=== PATIENT | female | born 1975 | race Caucasian/White ===

== ENCOUNTER 2018-07-17 17:51 | Emergency (ER) | payer OTHER ==
--- NOTE | 2018-07-17 18:57 | UC ---
Laceration HPI - History Of Current Complaint Stated Complaint: THUMB LAC Time Seen by Provider: 07/17/18 18:57 Hx Last Menstrual Period: IRREGULAR - Allergies/Home Medications Allergies/Adverse Reactions: Allergies Allergy/AdvReac Type Severity Reaction Status Date / Time No Known Allergies Allergy Verified 02/23/16 10:29 PMH/Surg Hx/FS Hx/Imm Hx - Surgical History Surgical History: Yes Surgery Procedure, Year, and Place: RECTAL CYST. - Family History Known Family History: Positive: None Negative: Blood Disorder - Social History Alcohol Use: Rare Substance Use Type: None Smoking Status (MU): Never Smoked Tobacco Discharge - Discharge Plan Referrals: Leigh Calvert MD [Primary Care Provider] -
[2018-07-17 19:07] VITALS: BP 104/69
[2018-07-17] MEDS ORDERED: Tetan/Diph/Pertus SYR(Tdap)* 0.5 ML SYR(BOOSTRIX) use SYR IM ONE (19:15)
--- NOTE | 2018-07-17 19:15 | UC ---
Hand/Wrist HPI - HPI Summary HPI Summary: 43-year-old woman comes in with a chief complaint of laceration to the tip of her left thumb. This happened just prior to arrival with a kitchen knife. It was bleeding quite a bit and she put direct pressure on it and the bleeding stopped. There is some pain if she touches it hurts more if she doesn't touch it hurts LESS. Her last tetanus was in 2007. - History Of Current Complaint Chief Complaint: UCLaceration Stated Complaint: THUMB LAC Time Seen by Provider: 07/17/18 18:57 Hx Last Menstrual Period: a few days Pain Intensity: 0 - Allergies/Home Medications Allergies/Adverse Reactions: Allergies Allergy/AdvReac Type Severity Reaction Status Date / Time No Known Allergies Allergy Verified 02/23/16 10:29 Home Medications: Home Medications FLUoxetine CAP* [PROzac CAP*] 20 mg PO DAILY 07/17/18 [History Confirmed ] PMH/Surg Hx/FS Hx/Imm Hx Previously Healthy: Yes - Surgical History Surgical History: Yes Surgery Procedure, Year, and Place: RECTAL CYST. - Family History Known Family History: Positive: None, Diabetes Negative: Blood Disorder - Social History Alcohol Use: Rare Substance Use Type: None Smoking Status (MU): Never Smoked Tobacco - Immunization History Most Recent Tetanus Shot: 2007 Review of Systems All Other Systems Reviewed And Are Negative: Yes Constitutional: Positive: Negative Skin: Positive: Other - SEE HPI Eyes: Positive: Negative ENT: Positive: Negative Respiratory: Positive: Negative Cardiovascular: Positive: Negative Gastrointestinal: Positive: Negative Motor: Positive: Negative Neurovascular: Positive: Negative Musculoskeletal: Positive: Negative Neurological: Positive: Negative Psychological: Positive: Negative Is Patient Immunocompromised?: No Physical Exam Triage Information Reviewed: Yes Appearance: Well-Appearing, No Pain Distress, Well-Nourished Vital Signs: Initial Vital Signs Temp 98.1 F 07/17/18 19:01 Pulse 62 07/17/18 19:01 Resp 18 07/17/18 19:01 BP 104/69 07/17/18 19:01 Pulse Ox 100 07/17/18 19:01 Vital Signs Reviewed: Yes Eye Exam: Normal Eyes: Positive: Conjunctiva Clear Neck exam: Normal Neck: Positive: Supple Respiratory: Positive: No respiratory distress Musculoskeletal Exam: Normal Musculoskeletal: Positive: Strength Intact, ROM Intact Neurological Exam: Normal Neurological: Positive: Alert, Muscle Tone Normal Psychological Exam: Normal Psychological: Positive: Age Appropriate Behavior Skin: Positive: Other - And the tip of the left thumb there is a curved 1 cm laceration with closely approximated edges. Normal sensation and normal capillary refill. After cleaning there is a small amount of seepage of blood. Direct pressure stopped the bleeding right away. Hand/Wrist Course/Dx - Course Course Of Treatment: After cleaning the wound is full thickness however it's not much deeper than the skin level. Bleeding also stops very quickly with direct pressure. Discussed sutures versus glue versus direct pressure as needed. At this time decided to go with a dressing with direct pressure as needed. Patient received T tap in the clinic. - Differential Dx/Diagnosis Provider Diagnoses: LACERATION LEFT THUMB Discharge - Sign-Out/Discharge Documenting (check all that apply): Patient Departure All imaging exams completed and their final reports reviewed: No Studies - Discharge Plan Condition: Stable Disposition: HOME Patient Education Materials: Laceration Without Closure (ED) Referrals: Leigh Calvert MD [Primary Care Provider] - Additional Instructions: FOLLOW UP WITH YOUR DOCTOR IF NOT COMPLETELY IMPROVED. GET RECHECKED FOR ANY WORSENING OF YOUR CONDITION OR QUESTIONS OR CONCERNS. - Billing Disposition and Condition Condition: STABLE Disposition: Home
[2018-07-17] MEDS ORDERED: Mupirocin 2% OINT* TUBE TOPICAL ONE (19:23)
== END 2018-07-17 19:43 | disposition home or self-care (01) ==
LOC: UCEAST 17:51
DX: S61.012A Laceration without foreign body of left thumb without damage to nail, initial encounter (principal); W26.0XXA Contact with knife, initial encounter; Y92.89 Other specified places as the place of occurrence of the external cause
CPT/HCPCS: 90471; 90715; 99213; G0463